=== PATIENT | female | born 1930 | race Caucasian/White ===

== ENCOUNTER 2017-01-12 08:22 | Emergency (ER) | payer OTHER ==
[~2017-01-12] VITALS: Ht 162.6 cm; Wt 65.9 kg
[~2017-01-12 08:22] MED LIST: NORCO 5/3251 TABLET PO
[2017-01-12 12:05] VITALS: BP 185/91
== END 2017-01-12 12:05 | disposition home or self-care (01) ==
LOC: EME 08:22
DX: S70.01XA Contusion of right hip, initial encounter (principal); W06.XXXA Fall from bed, initial encounter; J44.9 Chronic obstructive pulmonary disease, unspecified; E78.5 Hyperlipidemia, unspecified; I10 Essential (primary) hypertension; K21.9 Gastro-esophageal reflux disease without esophagitis
CPT/HCPCS: 73502; 99281; 99284; G8978 GP CI; G8979 GP CH